=== PATIENT | male | born 1935 | race Caucasian/White ===

== ENCOUNTER 2019-08-06 16:50 | Inpatient (IN) | payer MEDICARE, MEDICAID ==
[~2019-08-06] VITALS: Ht 182.9 cm; Wt 68.5 kg
[2019-08-06 18:30] VITALS: BP 129/67
[2019-08-06] MEDS: MELATONIN 3 MG TABLET PO PRN (21:00)
[2019-08-06] MEDS: DOCUSATE SODIUM 100 MG CAPSULE PO SCH (21:00)
[2019-08-06] MEDS: SENNA 187 MG TABLET PO SCH (21:00)
[2019-08-06] MEDS: DOXAZOSIN MESYLATE 1 MG TABLET PO SCH (21:00)
[2019-08-06] MEDS: ATORVASTATIN CALCIUM 40 MG TABLET PO SCH (21:00)
[2019-08-06 21:03] VITALS: BP 124/61
[2019-08-06 23:53] VITALS: BP 105/52
[2019-08-07 07:14] LABS: BASOPHILS % (AUTO) 0.6 % (0.0-2.0); EOSINOPHILS % (AUTO) 2.7 % (1.0-6.0); HEMATOCRIT 28.4 % (41-53); HEMOGLOBIN 9.8 g/dL (13.5-17.5); LYMPHOCYTES # (AUTO) 1.2 K/uL (1.0-4.8); LYMPHOCYTES % (AUTO) 19.5 % (22.0-44.0); MEAN CORPUSCULAR HEMOGLOBIN 29.5 pg (26.0-34.0); MEAN CORPUSCULAR HGB CONC 34.5 G/dL (31.0-37.0); MEAN CORPUSCULAR VOLUME 86 fL (80-100); MONOCYTES # (AUTO) 0.6 K/uL (0.1-1.0); MONOCYTES % (AUTO) 9.4 % (2.0-9.0); NEUTROPHILS % (AUTO) 67.8 % (40.0-70.0); PLATELET COUNT (AUTO) 271 K/uL (150-450); RED BLOOD CELL COUNT(AUTO) 3.32 MIL/uL (4.50-5.90); RED CELL DISTRIBUTION WIDTH 12.5 % (11.5-14.5)
[2019-08-07 07:20] VITALS: BP 115/65
[2019-08-07 07:40] LABS: ALANINE AMINOTRANSFERASE 39 U/L (12-78); ALBUMIN 2.8 g/dL (3.4-5.0); ALKALINE PHOSPHATASE 106 U/L (46-116); ANION GAP 4 mmol/L (8-16); ASPARTATE AMINOTRANSFERASE 29 U/L (15-37); BILIRUBIN,TOTAL 0.4 mg/dL (0.1-1.0); CALCIUM, TOTAL 8.4 mg/dL (8.8-10.5); CARBON DIOXIDE 31 mmol/L (22-29); CHLORIDE 107 mmol/L (98-107); CREATININE 0.98 mg/dL (0.60-1.30); GLUCOSE,RANDOM 103 mg/dL (70-110); POTASSIUM 4.1 mmol/L (3.5-5.1); SODIUM SERUM 142 mmol/L (136-145); TOTAL PROTEIN, SERUM 6.3 g/dL (6.4-8.2); UREA NITROGEN, BLOOD 35 mg/dL (7-18)
[2019-08-07 07:41] LABS: GLOMERULAR FILTR. RATE CALC > 60 mL/min (>60)
[2019-08-07] MEDS: CLOPIDOGREL BISULFATE 75 MG TABLET PO SCH (08:25)
[2019-08-07] MEDS: DOCUSATE SODIUM 100 MG CAPSULE PO SCH ×2 (08:25→21:59)
[2019-08-07] MEDS: ASPIRIN 81 MG EC TABLET PO SCH (08:25)
[2019-08-07] MEDS: POLYETHYLENE GLYCOL 3350 17 GM PACKET PO SCH (08:25)
[2019-08-07 15:23] VITALS: BP 111/50
[2019-08-07] MEDS: DOXAZOSIN MESYLATE 1 MG TABLET PO SCH (21:58)
[2019-08-07] MEDS: ATORVASTATIN CALCIUM 40 MG TABLET PO SCH (21:58)
[2019-08-07] MEDS: SENNA 187 MG TABLET PO SCH (21:58)
[2019-08-07] MEDS: MELATONIN 3 MG TABLET PO PRN (22:51)
[2019-08-08 02:30] VITALS: BP 120/69
[2019-08-08 09:00] VITALS: BP 118/65
[2019-08-08] MEDS: POLYETHYLENE GLYCOL 3350 17 GM PACKET PO SCH (10:54)
[2019-08-08] MEDS: DOCUSATE SODIUM 100 MG CAPSULE PO SCH ×2 (10:54→20:04)
[2019-08-08] MEDS: ASPIRIN 81 MG EC TABLET PO SCH (10:54)
[2019-08-08] MEDS: CLOPIDOGREL BISULFATE 75 MG TABLET PO SCH (10:54)
[2019-08-08 15:30] VITALS: BP 97/51
[2019-08-08] MEDS ORDERED: MAGNESIUM HYDROXIDE SUSPENSION 30 ML UDCUP PO PRN (16:30)
[2019-08-08] MEDS: DOCUSATE SODIUM 283 MG/5 ML MINI-ENEMA PR PRN (17:22)
[2019-08-08] MEDS: SENNA 187 MG TABLET PO SCH (20:04)
[2019-08-08] MEDS: MELATONIN 3 MG TABLET PO PRN (20:04)
[2019-08-08] MEDS: ATORVASTATIN CALCIUM 40 MG TABLET PO SCH (20:04)
[2019-08-08] MEDS: DOXAZOSIN MESYLATE 1 MG TABLET PO SCH (20:05)
[2019-08-09] VITALS: BP 116/57
[2019-08-09 08:00] VITALS: BP 118/76
[2019-08-09] MEDS: CLOPIDOGREL BISULFATE 75 MG TABLET PO SCH (08:15)
[2019-08-09] MEDS: DOCUSATE SODIUM 100 MG CAPSULE PO SCH (08:15)
[2019-08-09] MEDS: ASPIRIN 81 MG EC TABLET PO SCH (08:15)
[2019-08-09] MEDS: MULTIVITAMINS WITH MINERALS, THERAPEUTIC TABLET PO SCH (08:16)
[2019-08-09] MEDS: POLYETHYLENE GLYCOL 3350 17 GM PACKET PO SCH (08:16)
[2019-08-09 16:00] VITALS: BP 102/51
[2019-08-09 20:56] VITALS: BP 130/66
[2019-08-09] MEDS ORDERED: DOCUSATE SODIUM 100 MG CAPSULE PO SCH (21:00)
[2019-08-09] MEDS: SENNA 187 MG TABLET PO SCH (21:33)
[2019-08-09] MEDS: MELATONIN 3 MG TABLET PO PRN (21:34)
[2019-08-09] MEDS: ATORVASTATIN CALCIUM 40 MG TABLET PO SCH (21:34)
[2019-08-09] MEDS: DOXAZOSIN MESYLATE 1 MG TABLET PO SCH (21:34)
[2019-08-09] MEDS: DOCUSATE SODIUM 283 MG/5 ML MINI-ENEMA PR PRN (21:39)
[2019-08-09 23:10] VITALS: BP 134/71
[2019-08-10 07:11] VITALS: BP 123/67
[2019-08-10] MEDS: ASPIRIN 81 MG EC TABLET PO SCH (07:48)
[2019-08-10] MEDS: POLYETHYLENE GLYCOL 3350 17 GM PACKET PO SCH (07:49)
[2019-08-10] MEDS: CLOPIDOGREL BISULFATE 75 MG TABLET PO SCH (07:49)
[2019-08-10] MEDS: MULTIVITAMINS WITH MINERALS, THERAPEUTIC TABLET PO SCH (07:49)
[2019-08-10] MEDS: DOCUSATE SODIUM 250 MG CAPSULE PO SCH ×2 (08:02→22:06)
[2019-08-10 15:28] VITALS: BP 127/84
[2019-08-10] MEDS: DOCUSATE SODIUM 283 MG/5 ML MINI-ENEMA PR PRN (18:40)
[2019-08-10 19:22] VITALS: BP 141/73
[2019-08-10] MEDS: ACETAMINOPHEN 325 MG TABLET PO PRN (19:25)
[2019-08-10 20:24] LABS: BASOPHILS % (AUTO) 0.5 % (0.0-2.0); EOSINOPHILS % (AUTO) 0.1 % (1.0-6.0); HEMATOCRIT 30.4 % (41-53); HEMOGLOBIN 10.5 g/dL (13.5-17.5); LYMPHOCYTES # (AUTO) 0.6 K/uL (1.0-4.8); LYMPHOCYTES % (AUTO) 3.8 % (22.0-44.0); MEAN CORPUSCULAR HEMOGLOBIN 28.9 pg (26.0-34.0); MEAN CORPUSCULAR HGB CONC 34.4 G/dL (31.0-37.0); MEAN CORPUSCULAR VOLUME 84 fL (80-100); MONOCYTES # (AUTO) 0.6 K/uL (0.1-1.0); NEUTROPHILS # (AUTO) 14.6 K/uL (1.8-7.7); PLATELET COUNT (AUTO) 367 K/uL (150-450); RED BLOOD CELL COUNT(AUTO) 3.62 MIL/uL (4.50-5.90); RED CELL DISTRIBUTION WIDTH 12.6 % (11.5-14.5)
[2019-08-10 20:32] LABS: NEUTROPHILS % (AUTO) 91.6 % (40.0-70.0)
[2019-08-10 20:35] LABS: ANION GAP 11 mmol/L (8-16); CALCIUM, TOTAL 8.3 mg/dL (8.8-10.5); CARBON DIOXIDE 25 mmol/L (22-29); CHLORIDE 101 mmol/L (98-107); CREATININE 1.13 mg/dL (0.60-1.30); GLUCOSE,RANDOM 182 mg/dL (70-110); POTASSIUM 4.3 mmol/L (3.5-5.1); SODIUM SERUM 137 mmol/L (136-145); UREA NITROGEN, BLOOD 36 mg/dL (7-18)
[2019-08-10 20:36] LABS: GLOMERULAR FILTR. RATE CALC > 60 mL/min (>60)
[2019-08-10 20:44] LABS: LACTIC ACID 1.7 mmol/L (0.4-2.0)
[2019-08-10] MEDS ORDERED: SODIUM CHLORIDE 3% 15 ML NEB SOLUTION NEB ONE (20:57)
[2019-08-10] MEDS ORDERED: VANCOMYCIN HCL 1.25 GM in DEXTROSE 5%-WATER 250 ML IV ONE (21:30)
[2019-08-10 22:02] VITALS: BP 104/55
[2019-08-10] MEDS: DOXAZOSIN MESYLATE 1 MG TABLET PO SCH (22:02)
[2019-08-10] MEDS: SENNA 187 MG TABLET PO SCH (22:05)
[2019-08-10] MEDS: ATORVASTATIN CALCIUM 40 MG TABLET PO SCH (22:06)
[2019-08-10] MEDS: MELATONIN 3 MG TABLET PO PRN (22:06)
[2019-08-10 23:13] LABS: APPEARANCE,URINE CLEAR (CLEAR); BILIRUBIN,URINE NEGATIVE (NEGATIVE); GLUCOSE, URINE (UA) NEGATIVE (NEGATIVE); KETONES,URINE NEGATIVE (NEGATIVE); LEUKOCYTE ESTERASE ,URINE NEGATIVE (NEGATIVE); NITRATE,URINE NEGATIVE (NEGATIVE); OCCULT BLOOD,URINE SMALL (NEGATIVE); PROTEIN,URINE TRACE (NEGATIVE)
[2019-08-10 23:47] LABS: BACTERIA,URINE None Seen /HPF (None Seen); SQUAMOUS EPITHELIAL CELL,UR Rare /LPF (None Seen); WBC,URINE None Seen /HPF (0-5)
[2019-08-11] VITALS: BP 99/55
[2019-08-11] MEDS: PIPERACILLIN/TAZO 3.375 GM/D5W 50 ML IV SCH ×5 (00:44→23:17)
[2019-08-11 07:30] VITALS: BP 105/56
[2019-08-11] MEDS: VANCOMYCIN HCL 1.25 GM in DEXTROSE 5%-WATER 250 ML IV SCH (07:58)
[2019-08-11 08:35] LABS: ANION GAP 10 mmol/L (8-16); CALCIUM, TOTAL 8.7 mg/dL (8.8-10.5); CARBON DIOXIDE 26 mmol/L (22-29); CHLORIDE 104 mmol/L (98-107); GLUCOSE,RANDOM 102 mg/dL (70-110); SODIUM SERUM 140 mmol/L (136-145); UREA NITROGEN, BLOOD 30 mg/dL (7-18)
[2019-08-11 08:40] LABS: GLOMERULAR FILTR. RATE CALC > 60 mL/min (>60)
[2019-08-11] MEDS: POLYETHYLENE GLYCOL 3350 17 GM PACKET PO SCH (10:03)
[2019-08-11] MEDS: DOCUSATE SODIUM 250 MG CAPSULE PO SCH ×2 (10:03→20:35)
[2019-08-11] MEDS: MULTIVITAMINS WITH MINERALS, THERAPEUTIC TABLET PO SCH (10:03)
[2019-08-11] MEDS: ASPIRIN 81 MG EC TABLET PO SCH (10:03)
[2019-08-11] MEDS: CLOPIDOGREL BISULFATE 75 MG TABLET PO SCH (10:03)
[2019-08-11 15:20] VITALS: BP 145/70
[2019-08-11] MEDS: DOXAZOSIN MESYLATE 1 MG TABLET PO SCH (20:35)
[2019-08-11] MEDS: SENNA 187 MG TABLET PO SCH (20:36)
[2019-08-11] MEDS: ATORVASTATIN CALCIUM 40 MG TABLET PO SCH (20:36)
[2019-08-11] MEDS: MELATONIN 3 MG TABLET PO PRN (21:23)
[2019-08-12] VITALS: BP 117/58
[2019-08-12] MEDS: PIPERACILLIN/TAZO 3.375 GM/D5W 50 ML IV SCH ×4 (05:27→23:24)
[2019-08-12] MEDS: VANCOMYCIN HCL 1.25 GM in DEXTROSE 5%-WATER 250 ML IV SCH (06:31)
[2019-08-12 07:19] VITALS: BP 103/58
[2019-08-12 08:22] LABS: CREATININE 1.36 mg/dL (0.60-1.30); POTASSIUM 3.7 mmol/L (3.5-5.1)
[2019-08-12 08:23] LABS: CALCIUM, TOTAL 8.3 mg/dL (8.8-10.5)
[2019-08-12] MEDS: ASPIRIN 81 MG EC TABLET PO SCH (08:39)
[2019-08-12] MEDS: POLYETHYLENE GLYCOL 3350 17 GM PACKET PO SCH (08:39)
[2019-08-12] MEDS: MULTIVITAMINS WITH MINERALS, THERAPEUTIC TABLET PO SCH (08:39)
[2019-08-12] MEDS: CLOPIDOGREL BISULFATE 75 MG TABLET PO SCH (08:39)
[2019-08-12] MEDS: DOCUSATE SODIUM 250 MG CAPSULE PO SCH ×2 (08:39→20:13)
[2019-08-12 15:20] VITALS: BP 118/60
[2019-08-12] MEDS: DOXAZOSIN MESYLATE 1 MG TABLET PO SCH (20:13)
[2019-08-12] MEDS: ATORVASTATIN CALCIUM 40 MG TABLET PO SCH (20:13)
[2019-08-12] MEDS: SENNA 187 MG TABLET PO SCH (20:13)
[2019-08-12] MEDS: MELATONIN 3 MG TABLET PO PRN (21:02)
[2019-08-13] VITALS (7 sets, daily range): BP systolic 99–130; BP diastolic 54–70
[2019-08-13] MEDS: PIPERACILLIN/TAZO 3.375 GM/D5W 50 ML IV SCH ×4 (05:11→23:54)
[2019-08-13] MEDS ORDERED: VANCOMYCIN HCL 1 GM/D5% WATER 200 ML IV SCH (07:00)
[2019-08-13] MEDS: POLYETHYLENE GLYCOL 3350 17 GM PACKET PO SCH ×2 (09:00→09:09)
[2019-08-13] MEDS: DOCUSATE SODIUM 250 MG CAPSULE PO SCH ×3 (09:00→21:21)
[2019-08-13 09:06] LABS: BASOPHILS % (AUTO) 0.8 % (0.0-2.0); EOSINOPHILS % (AUTO) 2.4 % (1.0-6.0); HEMATOCRIT 31.8 % (41-53); HEMOGLOBIN 10.8 g/dL (13.5-17.5); LYMPHOCYTES # (AUTO) 0.9 K/uL (1.0-4.8); MEAN CORPUSCULAR HEMOGLOBIN 28.5 pg (26.0-34.0); MEAN CORPUSCULAR HGB CONC 33.8 G/dL (31.0-37.0); MEAN CORPUSCULAR VOLUME 84 fL (80-100); MONOCYTES # (AUTO) 0.3 K/uL (0.1-1.0); MONOCYTES % (AUTO) 5.4 % (2.0-9.0); NEUTROPHILS # (AUTO) 4.4 K/uL (1.8-7.7); NEUTROPHILS % (AUTO) 75.4 % (40.0-70.0); PLATELET COUNT (AUTO) 390 K/uL (150-450); RED BLOOD CELL COUNT(AUTO) 3.77 MIL/uL (4.50-5.90); RED CELL DISTRIBUTION WIDTH 12.6 % (11.5-14.5)
[2019-08-13] MEDS: ASPIRIN 81 MG EC TABLET PO SCH (09:08)
[2019-08-13] MEDS: CLOPIDOGREL BISULFATE 75 MG TABLET PO SCH (09:09)
[2019-08-13] MEDS: MULTIVITAMINS WITH MINERALS, THERAPEUTIC TABLET PO SCH (09:09)
[2019-08-13 09:25] LABS: CALCIUM, TOTAL 8.6 mg/dL (8.8-10.5); CREATININE 1.39 mg/dL (0.60-1.30); POTASSIUM 3.8 mmol/L (3.5-5.1)
[2019-08-13] MEDS: DOXAZOSIN MESYLATE 1 MG TABLET PO SCH (21:21)
[2019-08-13] MEDS: SENNA 187 MG TABLET PO SCH (21:21)
[2019-08-13] MEDS: MELATONIN 3 MG TABLET PO PRN (21:21)
[2019-08-13] MEDS: ATORVASTATIN CALCIUM 40 MG TABLET PO SCH (21:21)
[2019-08-14 01:30] VITALS: BP 111/53
[2019-08-14] MEDS: PIPERACILLIN/TAZO 3.375 GM/D5W 50 ML IV SCH ×2 (05:52→13:01)
[2019-08-14 08:00] VITALS: BP 110/61
[2019-08-14] MEDS: MULTIVITAMINS WITH MINERALS, THERAPEUTIC TABLET PO SCH (08:40)
[2019-08-14] MEDS: POLYETHYLENE GLYCOL 3350 17 GM PACKET PO SCH (08:40)
[2019-08-14] MEDS: DOCUSATE SODIUM 250 MG CAPSULE PO SCH (08:40)
[2019-08-14] MEDS: ASPIRIN 81 MG EC TABLET PO SCH (08:40)
[2019-08-14] MEDS: CLOPIDOGREL BISULFATE 75 MG TABLET PO SCH (08:40)
[2019-08-14] MEDS ORDERED: SODIUM CHLORIDE 0.9% 250 ML IV ONE (10:39)
[2019-08-14 15:01] VITALS: BP 119/61
[2019-08-14 20:45] VITALS: BP 110/59
[2019-08-14] MEDS: DOXAZOSIN MESYLATE 1 MG TABLET PO SCH (20:54)
[2019-08-14] MEDS: AMOX TR/POT CLAV 875 MG/125 MG TABLET PO SCH (20:54)
[2019-08-14] MEDS: ATORVASTATIN CALCIUM 40 MG TABLET PO SCH (20:54)
[2019-08-14] MEDS: MELATONIN 3 MG TABLET PO PRN (20:57)
[2019-08-14] MEDS: SENNA 187 MG TABLET PO SCH (21:00)
[2019-08-14] MEDS: DOCUSATE SODIUM 100 MG CAPSULE PO SCH (21:00)
[2019-08-15 01:41] VITALS: BP 122/58
[2019-08-15] MEDS ORDERED: POLYETHYLENE GLYCOL 3350 17 GM PACKET PO PRN (07:15)
[2019-08-15] MEDS: MULTIVITAMINS WITH MINERALS, THERAPEUTIC TABLET PO SCH (07:43)
[2019-08-15] MEDS: AMOX TR/POT CLAV 875 MG/125 MG TABLET PO SCH ×2 (07:43→21:07)
[2019-08-15] MEDS: CLOPIDOGREL BISULFATE 75 MG TABLET PO SCH (07:43)
[2019-08-15] MEDS: DOCUSATE SODIUM 100 MG CAPSULE PO SCH ×2 (07:43→21:00)
[2019-08-15] MEDS: ASPIRIN 81 MG EC TABLET PO SCH (07:44)
[2019-08-15 09:05] VITALS: BP 112/58
[2019-08-15 12:14] LABS: CALCIUM, TOTAL 8.6 mg/dL (8.8-10.5); CREATININE 1.2 mg/dL (0.60-1.30); POTASSIUM 4.1 mmol/L (3.5-5.1)
[2019-08-15 15:20] VITALS: BP 120/65
[2019-08-15 20:33] VITALS: BP 120/68
[2019-08-15] MEDS: DOXAZOSIN MESYLATE 1 MG TABLET PO SCH (20:34)
[2019-08-15] MEDS: ATORVASTATIN CALCIUM 40 MG TABLET PO SCH (20:34)
[2019-08-15] MEDS: SENNA 187 MG TABLET PO SCH (21:00)
[2019-08-15] MEDS: MELATONIN 3 MG TABLET PO PRN (21:10)
[2019-08-16 06:22] VITALS: BP 112/65
[2019-08-16 08:53] VITALS: BP 114/61
[2019-08-16] MEDS: DOCUSATE SODIUM 100 MG CAPSULE PO SCH ×2 (09:00→20:23)
[2019-08-16] MEDS: MULTIVITAMINS WITH MINERALS, THERAPEUTIC TABLET PO SCH (09:42)
[2019-08-16] MEDS: ASPIRIN 81 MG EC TABLET PO SCH (09:42)
[2019-08-16] MEDS: CLOPIDOGREL BISULFATE 75 MG TABLET PO SCH (09:42)
[2019-08-16] MEDS: AMOX TR/POT CLAV 875 MG/125 MG TABLET PO SCH ×2 (09:42→20:18)
[2019-08-16 15:08] VITALS: BP 111/57
[2019-08-16] MEDS: FLUoxetine HCL 10 MG CAPSULE PO SCH (15:14)
[2019-08-16] MEDS: DOXAZOSIN MESYLATE 1 MG TABLET PO SCH (20:18)
[2019-08-16] MEDS: ATORVASTATIN CALCIUM 40 MG TABLET PO SCH (20:18)
[2019-08-16] MEDS: SENNA 187 MG TABLET PO SCH (20:23)
[2019-08-16] MEDS: MELATONIN 3 MG TABLET PO PRN (20:50)
[2019-08-17 00:06] VITALS: BP 112/62
[2019-08-17 07:32] VITALS: BP 118/76
[2019-08-17] MEDS: FLUoxetine HCL 10 MG CAPSULE PO SCH (08:30)
[2019-08-17] MEDS: MULTIVITAMINS WITH MINERALS, THERAPEUTIC TABLET PO SCH (08:30)
[2019-08-17] MEDS: AMOX TR/POT CLAV 875 MG/125 MG TABLET PO SCH (08:31)
[2019-08-17] MEDS: ASPIRIN 81 MG EC TABLET PO SCH (08:31)
[2019-08-17] MEDS: CLOPIDOGREL BISULFATE 75 MG TABLET PO SCH (08:31)
[2019-08-17] MEDS: DOCUSATE SODIUM 100 MG CAPSULE PO SCH ×2 (08:32→20:06)
[2019-08-17 15:26] VITALS: BP 129/66
[2019-08-17] MEDS: ATORVASTATIN CALCIUM 40 MG TABLET PO SCH (20:02)
[2019-08-17] MEDS: DOXAZOSIN MESYLATE 1 MG TABLET PO SCH (20:02)
[2019-08-17] MEDS: MELATONIN 3 MG TABLET PO PRN (20:02)
[2019-08-17] MEDS: SENNA 187 MG TABLET PO SCH (20:06)
[2019-08-18 01:37] VITALS: BP 107/58
[2019-08-18 07:30] VITALS: BP 115/60
[2019-08-18] MEDS: ASPIRIN 81 MG EC TABLET PO SCH (08:26)
[2019-08-18] MEDS: DOCUSATE SODIUM 100 MG CAPSULE PO SCH ×2 (08:26→20:01)
[2019-08-18] MEDS: CLOPIDOGREL BISULFATE 75 MG TABLET PO SCH (08:26)
[2019-08-18] MEDS: FLUoxetine HCL 10 MG CAPSULE PO SCH (08:26)
[2019-08-18] MEDS: MULTIVITAMINS WITH MINERALS, THERAPEUTIC TABLET PO SCH (08:26)
[2019-08-18 15:20] VITALS: BP 109/66
[2019-08-18 19:53] VITALS: BP 117/58
[2019-08-18] MEDS: ATORVASTATIN CALCIUM 40 MG TABLET PO SCH (20:00)
[2019-08-18] MEDS: SENNA 187 MG TABLET PO SCH (20:01)
[2019-08-18] MEDS: DOXAZOSIN MESYLATE 1 MG TABLET PO SCH (20:01)
[2019-08-18] MEDS: MELATONIN 3 MG TABLET PO PRN (20:32)
[2019-08-19 03:15] VITALS: BP 100/56
[2019-08-19 07:11] VITALS: BP 101/57
[2019-08-19] MEDS: MULTIVITAMINS WITH MINERALS, THERAPEUTIC TABLET PO SCH (08:10)
[2019-08-19] MEDS: CLOPIDOGREL BISULFATE 75 MG TABLET PO SCH (08:10)
[2019-08-19] MEDS: FLUoxetine HCL 10 MG CAPSULE PO SCH (08:10)
[2019-08-19] MEDS: ASPIRIN 81 MG EC TABLET PO SCH (08:10)
[2019-08-19] MEDS: DOCUSATE SODIUM 100 MG CAPSULE PO SCH ×2 (08:13→21:00)
[2019-08-19 15:54] VITALS: BP 108/59
[2019-08-19 20:00] VITALS: BP 110/57
[2019-08-19] MEDS: DOXAZOSIN MESYLATE 1 MG TABLET PO SCH (20:09)
[2019-08-19] MEDS: MELATONIN 3 MG TABLET PO PRN (20:09)
[2019-08-19] MEDS: ATORVASTATIN CALCIUM 40 MG TABLET PO SCH (20:09)
[2019-08-19] MEDS: SENNA 187 MG TABLET PO SCH (21:00)
[2019-08-20 01:52] VITALS: BP 104/53
[2019-08-20 07:18] VITALS: BP 100/52
[2019-08-20] MEDS: MULTIVITAMINS WITH MINERALS, THERAPEUTIC TABLET PO SCH (08:22)
[2019-08-20] MEDS: ASPIRIN 81 MG EC TABLET PO SCH (08:22)
[2019-08-20] MEDS: CLOPIDOGREL BISULFATE 75 MG TABLET PO SCH (08:22)
[2019-08-20] MEDS: DOCUSATE SODIUM 100 MG CAPSULE PO SCH ×2 (08:22→20:12)
[2019-08-20] MEDS: FLUoxetine HCL 10 MG CAPSULE PO SCH (08:22)
[2019-08-20 15:21] VITALS: BP 117/58
[2019-08-20 20:03] VITALS: BP 115/64
[2019-08-20] MEDS: MELATONIN 3 MG TABLET PO PRN (20:12)
[2019-08-20] MEDS: ATORVASTATIN CALCIUM 40 MG TABLET PO SCH (20:12)
[2019-08-20] MEDS: DOXAZOSIN MESYLATE 1 MG TABLET PO SCH (20:12)
[2019-08-20] MEDS: SENNA 187 MG TABLET PO SCH (20:12)
[2019-08-20 23:52] VITALS: BP 117/62
[2019-08-21] MEDS ORDERED: PROZ10 PO (02:58)
[2019-08-21] MEDS ORDERED: CLOP75TA3 PO (02:58)
[2019-08-21] MEDS ORDERED: ATOR40TA28 PO (02:58)
[2019-08-21] MEDS ORDERED: MULT1CAP36 PO (02:58)
[2019-08-21] MEDS ORDERED: DOCU-275 PO (02:58)
[2019-08-21] MEDS ORDERED: ASPI-728 PO (02:58)
[2019-08-21] MEDS ORDERED: DOXA1 PO (02:58)
[2019-08-21 06:48] LABS: EOSINOPHILS % (AUTO) 2.2 % (1.0-6.0); HEMATOCRIT 28.4 % (41-53); HEMOGLOBIN 9.9 g/dL (13.5-17.5); LYMPHOCYTES # (AUTO) 1.4 K/uL (1.0-4.8); LYMPHOCYTES % (AUTO) 23.8 % (22.0-44.0); MEAN CORPUSCULAR HEMOGLOBIN 29.4 pg (26.0-34.0); MEAN CORPUSCULAR VOLUME 84 fL (80-100); MONOCYTES # (AUTO) 0.5 K/uL (0.1-1.0); MONOCYTES % (AUTO) 8.3 % (2.0-9.0); NEUTROPHILS # (AUTO) 3.7 K/uL (1.8-7.7); NEUTROPHILS % (AUTO) 64.7 % (40.0-70.0); PLATELET COUNT (AUTO) 270 K/uL (150-450); RED BLOOD CELL COUNT(AUTO) 3.38 MIL/uL (4.50-5.90); RED CELL DISTRIBUTION WIDTH 12.8 % (11.5-14.5)
[2019-08-21 06:55] LABS: ANION GAP 9 mmol/L (8-16); CALCIUM, TOTAL 8.2 mg/dL (8.8-10.5); CARBON DIOXIDE 26 mmol/L (22-29); CHLORIDE 107 mmol/L (98-107); CREATININE 1.09 mg/dL (0.60-1.30); GLUCOSE,RANDOM 93 mg/dL (70-110); POTASSIUM 3.9 mmol/L (3.5-5.1); SODIUM SERUM 142 mmol/L (136-145); UREA NITROGEN, BLOOD 28 mg/dL (7-18)
[2019-08-21 06:57] LABS: GLOMERULAR FILTR. RATE CALC > 60 mL/min (>60)
[2019-08-21 07:56] VITALS: BP 110/57
[2019-08-21] MEDS: MULTIVITAMINS WITH MINERALS, THERAPEUTIC TABLET PO SCH (08:30)
[2019-08-21] MEDS: CLOPIDOGREL BISULFATE 75 MG TABLET PO SCH (08:30)
[2019-08-21] MEDS: ASPIRIN 81 MG EC TABLET PO SCH (08:30)
[2019-08-21] MEDS: FLUoxetine HCL 10 MG CAPSULE PO SCH (08:30)
[2019-08-21] MEDS: DOCUSATE SODIUM 100 MG CAPSULE PO SCH ×2 (08:31→20:25)
[2019-08-21 15:14] VITALS: BP 132/77
[2019-08-21] MEDS ORDERED: ONDANSETRON HCL 4 MG TABLET PO PRN (15:15)
[2019-08-21] MEDS: ACETAMINOPHEN 325 MG TABLET PO PRN ×2 (15:46→20:25)
[2019-08-21 16:25] LABS: BASOPHILS % (AUTO) 0.7 % (0.0-2.0); EOSINOPHILS % (AUTO) 0.2 % (1.0-6.0); HEMOGLOBIN 11.1 g/dL (13.5-17.5); LYMPHOCYTES % (AUTO) 13.1 % (22.0-44.0); MEAN CORPUSCULAR HEMOGLOBIN 28.4 pg (26.0-34.0); MEAN CORPUSCULAR HGB CONC 33.6 G/dL (31.0-37.0); MEAN CORPUSCULAR VOLUME 85 fL (80-100); MONOCYTES # (AUTO) 0.8 K/uL (0.1-1.0); MONOCYTES % (AUTO) 5.2 % (2.0-9.0); NEUTROPHILS % (AUTO) 80.8 % (40.0-70.0); PLATELET COUNT (AUTO) 314 K/uL (150-450); RED CELL DISTRIBUTION WIDTH 12.7 % (11.5-14.5)
[2019-08-21 16:40] LABS: CREATININE 1.31 mg/dL (0.60-1.30); POTASSIUM 3.7 mmol/L (3.5-5.1)
[2019-08-21 16:41] LABS: ALBUMIN 3.3 g/dL (3.4-5.0); BILIRUBIN,TOTAL 0.3 mg/dL (0.1-1.0); CALCIUM, TOTAL 8.6 mg/dL (8.8-10.5); TOTAL PROTEIN, SERUM 7.3 g/dL (6.4-8.2)
[2019-08-21 20:21] VITALS: BP 130/68
[2019-08-21 20:25] LABS: APPEARANCE,URINE CLEAR (CLEAR); BILIRUBIN,URINE NEGATIVE (NEGATIVE); GLUCOSE, URINE (UA) NEGATIVE (NEGATIVE); KETONES,URINE NEGATIVE (NEGATIVE); LEUKOCYTE ESTERASE ,URINE SMALL (NEGATIVE); NITRATE,URINE NEGATIVE (NEGATIVE); OCCULT BLOOD,URINE TRACE (NEGATIVE); PH,URINE 7.5 (5.0-8.0); PROTEIN,URINE NEGATIVE (NEGATIVE); UROBILINOGEN,URINE 0.2 mg/dL (<=1.0)
[2019-08-21] MEDS: SENNA 187 MG TABLET PO SCH (20:25)
[2019-08-21] MEDS: MELATONIN 3 MG TABLET PO PRN (20:25)
[2019-08-21] MEDS: ATORVASTATIN CALCIUM 40 MG TABLET PO SCH (20:25)
[2019-08-21] MEDS: DOXAZOSIN MESYLATE 1 MG TABLET PO SCH (20:25)
[2019-08-21 20:54] LABS: SQUAMOUS EPITHELIAL CELL,UR Few /LPF (None Seen)
[2019-08-21 20:55] LABS: BACTERIA,URINE Moderate /HPF (None Seen)
[2019-08-21] MEDS: AMOX TR/POT CLAV 875 MG/125 MG TABLET PO SCH (22:42)
[2019-08-22 00:24] VITALS: BP 112/67
[2019-08-22] MEDS ORDERED: SENN8.6T90 PO (04:32)
[2019-08-22 07:54] VITALS: BP 92/53
[2019-08-22] MEDS: MULTIVITAMINS WITH MINERALS, THERAPEUTIC TABLET PO SCH (08:38)
[2019-08-22] MEDS: AMOX TR/POT CLAV 875 MG/125 MG TABLET PO SCH ×2 (08:38→20:03)
[2019-08-22] MEDS: CLOPIDOGREL BISULFATE 75 MG TABLET PO SCH (08:38)
[2019-08-22] MEDS: ASPIRIN 81 MG EC TABLET PO SCH (08:38)
[2019-08-22] MEDS: FLUoxetine HCL 10 MG CAPSULE PO SCH (08:38)
[2019-08-22] MEDS: DOCUSATE SODIUM 100 MG CAPSULE PO SCH ×2 (08:39→20:03)
[2019-08-22 16:00] VITALS: BP 110/64
[2019-08-22 20:02] VITALS: BP 112/62
[2019-08-22] MEDS: ATORVASTATIN CALCIUM 40 MG TABLET PO SCH (20:03)
[2019-08-22] MEDS: SENNA 187 MG TABLET PO SCH (20:04)
[2019-08-22] MEDS: MELATONIN 3 MG TABLET PO PRN (20:04)
[2019-08-22] MEDS: DOXAZOSIN MESYLATE 1 MG TABLET PO SCH (20:04)
[2019-08-23 01:00] VITALS: BP 117/58
[2019-08-23 07:20] VITALS: BP 116/60
[2019-08-23] MEDS: CLOPIDOGREL BISULFATE 75 MG TABLET PO SCH (08:28)
[2019-08-23] MEDS: FLUoxetine HCL 10 MG CAPSULE PO SCH (08:28)
[2019-08-23] MEDS: AMOX TR/POT CLAV 875 MG/125 MG TABLET PO SCH ×2 (08:29→20:51)
[2019-08-23] MEDS: DOCUSATE SODIUM 100 MG CAPSULE PO SCH ×2 (08:29→20:56)
[2019-08-23] MEDS: MULTIVITAMINS WITH MINERALS, THERAPEUTIC TABLET PO SCH (08:29)
[2019-08-23] MEDS: ASPIRIN 81 MG EC TABLET PO SCH (08:29)
[2019-08-23 08:54] LABS: BASOPHILS % (AUTO) 0.7 % (0.0-2.0); EOSINOPHILS % (AUTO) 0.5 % (1.0-6.0); HEMATOCRIT 32.9 % (41-53); HEMOGLOBIN 11.2 g/dL (13.5-17.5); LYMPHOCYTES # (AUTO) 1.3 K/uL (1.0-4.8); LYMPHOCYTES % (AUTO) 12.6 % (22.0-44.0); MEAN CORPUSCULAR HGB CONC 34.1 G/dL (31.0-37.0); MEAN CORPUSCULAR VOLUME 85 fL (80-100); MONOCYTES # (AUTO) 0.6 K/uL (0.1-1.0); MONOCYTES % (AUTO) 5.8 % (2.0-9.0); NEUTROPHILS % (AUTO) 80.4 % (40.0-70.0); PLATELET COUNT (AUTO) 237 K/uL (150-450); RED BLOOD CELL COUNT(AUTO) 3.87 MIL/uL (4.50-5.90); RED CELL DISTRIBUTION WIDTH 13.4 % (11.5-14.5)
[2019-08-23 09:02] LABS: CALCIUM, TOTAL 8.7 mg/dL (8.8-10.5); CREATININE 1.25 mg/dL (0.60-1.30); POTASSIUM 3.8 mmol/L (3.5-5.1)
[2019-08-23 15:17] VITALS: BP 120/59
[2019-08-23 20:49] VITALS: BP 115/58
[2019-08-23] MEDS: ATORVASTATIN CALCIUM 40 MG TABLET PO SCH (20:51)
[2019-08-23] MEDS: DOXAZOSIN MESYLATE 1 MG TABLET PO SCH (20:51)
[2019-08-23] MEDS: SENNA 187 MG TABLET PO SCH (20:56)
[2019-08-24 06:05] VITALS: BP 111/61
[2019-08-24 07:15] VITALS: BP 111/58
[2019-08-24] MEDS: FLUoxetine HCL 10 MG CAPSULE PO SCH (07:55)
[2019-08-24] MEDS: DOCUSATE SODIUM 100 MG CAPSULE PO SCH ×2 (07:55→20:21)
[2019-08-24] MEDS: AMOX TR/POT CLAV 875 MG/125 MG TABLET PO SCH (07:55)
[2019-08-24] MEDS: MULTIVITAMINS WITH MINERALS, THERAPEUTIC TABLET PO SCH (07:56)
[2019-08-24] MEDS: CLOPIDOGREL BISULFATE 75 MG TABLET PO SCH (07:56)
[2019-08-24] MEDS: ASPIRIN 81 MG EC TABLET PO SCH (07:56)
[2019-08-24] MEDS: LEVOFLOXACIN 750 MG TABLET PO SCH (12:34)
[2019-08-24 15:24] VITALS: BP 113/65
[2019-08-24 20:18] VITALS: BP 123/59
[2019-08-24] MEDS: MELATONIN 3 MG TABLET PO PRN (20:19)
[2019-08-24] MEDS: SENNA 187 MG TABLET PO SCH (20:20)
[2019-08-24] MEDS: DOXAZOSIN MESYLATE 1 MG TABLET PO SCH (20:20)
[2019-08-24] MEDS: ATORVASTATIN CALCIUM 40 MG TABLET PO SCH (20:20)
[2019-08-25 06:01] VITALS: BP 115/64
[2019-08-25 07:00] VITALS: BP 113/65
[2019-08-25] MEDS: DOCUSATE SODIUM 100 MG CAPSULE PO SCH ×2 (08:23→20:06)
[2019-08-25] MEDS: ASPIRIN 81 MG EC TABLET PO SCH (08:24)
[2019-08-25] MEDS: MULTIVITAMINS WITH MINERALS, THERAPEUTIC TABLET PO SCH (08:24)
[2019-08-25] MEDS: FLUoxetine HCL 10 MG CAPSULE PO SCH (08:24)
[2019-08-25] MEDS: CLOPIDOGREL BISULFATE 75 MG TABLET PO SCH (08:24)
[2019-08-25 15:36] VITALS: BP 96/58
[2019-08-25 19:59] VITALS: BP 111/58
[2019-08-25] MEDS: DOXAZOSIN MESYLATE 1 MG TABLET PO SCH (20:05)
[2019-08-25] MEDS: ATORVASTATIN CALCIUM 40 MG TABLET PO SCH (20:06)
[2019-08-25] MEDS: SENNA 187 MG TABLET PO SCH (20:06)
[2019-08-25] MEDS: MELATONIN 3 MG TABLET PO PRN (20:06)
[2019-08-26] VITALS: BP 116/62
[2019-08-26 07:30] VITALS: BP 105/55
[2019-08-26] MEDS: DOCUSATE SODIUM 100 MG CAPSULE PO SCH ×2 (09:00→20:26)
[2019-08-26] MEDS: ASPIRIN 81 MG EC TABLET PO SCH (11:05)
[2019-08-26] MEDS: CLOPIDOGREL BISULFATE 75 MG TABLET PO SCH (11:05)
[2019-08-26] MEDS: FLUoxetine HCL 10 MG CAPSULE PO SCH (11:06)
[2019-08-26] MEDS: LEVOFLOXACIN 750 MG TABLET PO SCH (11:06)
[2019-08-26] MEDS: MULTIVITAMINS WITH MINERALS, THERAPEUTIC TABLET PO SCH (11:06)
[2019-08-26 15:29] VITALS: BP 103/59
[2019-08-26] MEDS: MELATONIN 3 MG TABLET PO PRN (20:26)
[2019-08-26] MEDS: DOXAZOSIN MESYLATE 1 MG TABLET PO SCH (20:26)
[2019-08-26] MEDS: ATORVASTATIN CALCIUM 40 MG TABLET PO SCH (20:26)
[2019-08-26] MEDS: SENNA 187 MG TABLET PO SCH (20:27)
[2019-08-26 23:30] VITALS: BP 111/57
[2019-08-27 05:23] VITALS: BP 98/57
[2019-08-27 07:10] VITALS: BP 102/57
[2019-08-27] MEDS: MULTIVITAMINS WITH MINERALS, THERAPEUTIC TABLET PO SCH (08:16)
[2019-08-27] MEDS: ASPIRIN 81 MG EC TABLET PO SCH (08:16)
[2019-08-27] MEDS: FLUoxetine HCL 10 MG CAPSULE PO SCH (08:22)
[2019-08-27] MEDS: CLOPIDOGREL BISULFATE 75 MG TABLET PO SCH (08:22)
[2019-08-27] MEDS: DOCUSATE SODIUM 100 MG CAPSULE PO SCH ×2 (08:43→21:00)
[2019-08-27 15:07] VITALS: BP 106/57
[2019-08-27 20:30] VITALS: BP 120/60
[2019-08-27] MEDS: DOXAZOSIN MESYLATE 1 MG TABLET PO SCH (20:32)
[2019-08-27] MEDS: ATORVASTATIN CALCIUM 40 MG TABLET PO SCH (20:32)
[2019-08-27] MEDS: SENNA 187 MG TABLET PO SCH (21:00)
[2019-08-27] MEDS: MELATONIN 3 MG TABLET PO PRN (21:13)
[2019-08-28] VITALS: BP 116/58
[2019-08-28] MEDS: ASPIRIN 81 MG EC TABLET PO SCH (08:23)
[2019-08-28] MEDS: MULTIVITAMINS WITH MINERALS, THERAPEUTIC TABLET PO SCH (08:23)
[2019-08-28] MEDS: FLUoxetine HCL 10 MG CAPSULE PO SCH (08:23)
[2019-08-28] MEDS: CLOPIDOGREL BISULFATE 75 MG TABLET PO SCH (08:23)
[2019-08-28 08:39] VITALS: BP 106/57
[2019-08-28] MEDS: DOCUSATE SODIUM 100 MG CAPSULE PO SCH ×2 (09:00→20:51)
[2019-08-28] MEDS: LEVOFLOXACIN 750 MG TABLET PO SCH (09:31)
[2019-08-28 15:33] VITALS: BP 108/53
[2019-08-28 20:00] VITALS: BP 112/55
[2019-08-28] MEDS: MELATONIN 3 MG TABLET PO PRN (20:49)
[2019-08-28] MEDS: ATORVASTATIN CALCIUM 40 MG TABLET PO SCH (20:49)
[2019-08-28] MEDS: DOXAZOSIN MESYLATE 1 MG TABLET PO SCH (20:50)
[2019-08-28] MEDS: SENNA 187 MG TABLET PO SCH (20:51)
[2019-08-29 00:32] VITALS: BP 116/59
[2019-08-29 07:20] VITALS: BP 108/54
[2019-08-29] MEDS: ASPIRIN 81 MG EC TABLET PO SCH (08:07)
[2019-08-29] MEDS: CLOPIDOGREL BISULFATE 75 MG TABLET PO SCH (08:07)
[2019-08-29] MEDS: FLUoxetine HCL 10 MG CAPSULE PO SCH (08:07)
[2019-08-29] MEDS: DOCUSATE SODIUM 100 MG CAPSULE PO SCH ×2 (08:07→20:21)
[2019-08-29] MEDS: MULTIVITAMINS WITH MINERALS, THERAPEUTIC TABLET PO SCH (08:07)
[2019-08-29 16:20] VITALS: BP 109/60
[2019-08-29 20:19] VITALS: BP 115/64
[2019-08-29] MEDS: ATORVASTATIN CALCIUM 40 MG TABLET PO SCH (20:21)
[2019-08-29] MEDS: DOXAZOSIN MESYLATE 1 MG TABLET PO SCH (20:21)
[2019-08-29] MEDS: SENNA 187 MG TABLET PO SCH (20:21)
[2019-08-29] MEDS: MELATONIN 3 MG TABLET PO PRN (20:21)
[2019-08-30] VITALS: BP 122/71
[2019-08-30] MEDS ORDERED: DOCU-275 PO (07:13)
[2019-08-30] MEDS ORDERED: DOXA1 PO (07:13)
[2019-08-30 07:14] VITALS: BP 113/67
[2019-08-30] MEDS: MULTIVITAMINS WITH MINERALS, THERAPEUTIC TABLET PO SCH (07:50)
[2019-08-30] MEDS: FLUoxetine HCL 10 MG CAPSULE PO SCH (07:50)
[2019-08-30] MEDS: CLOPIDOGREL BISULFATE 75 MG TABLET PO SCH (07:50)
[2019-08-30] MEDS: ASPIRIN 81 MG EC TABLET PO SCH (07:50)
[2019-08-30] MEDS: DOCUSATE SODIUM 100 MG CAPSULE PO SCH ×2 (07:50→07:53)
[2019-08-30] MEDS ORDERED: ENOXAPARIN SODIUM 40 MG/0.4 ML PF SYRINGE SQ ONE (11:15)
== END 2019-08-30 14:20 | disposition home or self-care (01) | DRG 56 ==
LOC: 2WR 18:15
PROVIDERS: ADMIT Physical Medicine & Rehabilitation; ATTEND Physical Medicine & Rehabilitation
DX: I69.351 Hemiplegia and hemiparesis following cerebral infarction affecting right dominant side (principal); I63.02 Cerebral infarction due to thrombosis of basilar artery; A41.9 Sepsis, unspecified organism; E46 Unspecified protein-calorie malnutrition; N39.0 Urinary tract infection, site not specified; D64.9 Anemia, unspecified; E78.5 Hyperlipidemia, unspecified; F32.9 Major depressive disorder, single episode, unspecified; G47.00 Insomnia, unspecified; K59.00 Constipation, unspecified; D63.8 Anemia in other chronic diseases classified elsewhere; I27.20 Pulmonary hypertension, unspecified; N40.0 Benign prostatic hyperplasia without lower urinary tract symptoms; R13.10 Dysphagia, unspecified; Z20.828 Contact with and (suspected) exposure to other viral communicable diseases; Z87.891 Personal history of nicotine dependence; Z68.20 Body mass index [BMI] 20.0-20.9, adult
CPT/HCPCS: 74230; 83605; 84145; 87040; 87070; 87081; 87086; 87205; 92507; 92523; 92526; 92611; 93970; 94640; 97110; 97112; 97116; 97163; 97166; 97530; 97535; 99366; J1650; J2543; J3370; J7050; J7060; Q0162; 36415-L1; 36415-TC; 71045-TC; 71046; 71046-TC; 87635